=== PATIENT | male | born 1935 | race Caucasian/White ===

== ENCOUNTER 2016-05-19 20:34 | Inpatient (IN) | payer MEDICARE, OTHER, MEDICAID ==
[2016-05-19 21:12] LABS: HEMATOCRIT 31.1 % (39.0-49.0); HEMOGLOBIN 10.8 gm/dL (12.6-17.4); MEAN CORPUSCULAR HEMOGLOBIN 28.8 pg (27.0-31.0); MEAN CORPUSCULAR HGB CONC 34.8 pg (28.0-36.0); PLATELET COUNT 263 Th/cmm (150-400); RED BLOOD COUNT 3.74 Mil/cmm (3.80-5.80); RED CELL DISTRIBUTION WIDTH 14.3 % (11.5-20.0)
[2016-05-19 21:13] LABS: WHITE BLOOD COUNT 16.6 Th/cmm (4.8-10.8)
[2016-05-19 21:15] LABS: INR 1.27 (0.5-1.4); PROTHROMBIN TIME (TEST) 12.8 SECONDS (9.5-11.5)
[2016-05-19 21:19] LABS: ALB/GLOB RATIO 0.6 (1.0-1.8); ALKALINE PHOSPHATASE 224 U/L (34-104); ANION GAP 15.9 (7.0-16.0); BILIRUBIN,TOTAL 0.9 mg/dL (0.3-1.0); BUN - UREA NITROGEN 73 mg/dL (7-25); BUN/CREATININE RATIO 38.4; CALCIUM SERUM 9.9 mg/dL (8.6-10.3); CARBON DIOXIDE 20.4 mEq/L (21.0-31.0); CHLORIDE 102 mEq/L (98-107); CREATININE - SERUM 1.9 mg/dL (0.7-1.3); GLUCOSE 120 mg/dL (70-105); POTASSIUM SERUM 4.3 mEq/L (3.5-5.1); SGOT 16 U/L (13-39); SGPT/ALT 13 U/L (7-52); SODIUM SERUM 134 mEq/L (136-145)
--- NOTE | 2016-05-19 21:23 | ED Physician Chart ---
Chief Complaint/HPI - Patient Information Date Seen:: 05/19/16 Time Seen:: 20:40 Chief Complaint:: GENERALIZED BODY PAIN History of Present Illness:: THIS IS AN 80 YR MALE FROM HOME WITH GENERALIZE PAIN AND A HISTORY OF COLON CANCER WITH METS. HE HAS RENAL FINALURE, HEART DISEASE AND IS CACHETIC WITH SEVER MUSCLE WASTING. HE ALSO HAS HYPERTENSION MULTIPLE BED SORES. HE IS A DNR AND ON HIGH DOSES OF ANALGESICS. Allergies:: Allergies Allergy/AdvReac Type Severity Reaction Status Date / Time No Known Allergies Allergy Verified 01/05/16 22:14 Vitals:: Vital Signs - 8 hr 05/19/16 20:37 Temp 97.1 F HR 66 RR 20 BP 106/66 O2 Sat % 100 Historian:: Patient, EMS, Family Member, Medical Records Review:: Nurse's Note Reviewed Review of Systems - Review of Systems General/Constitutional: No fever, No chills, Weight loss, Weakness, No diaphoresis, No edema, Loss of appetite Skin: No skin lesions, No rash, No bruising Head: No headache, No light-headedness Eyes: No loss of vision, No pain, No diplopia ENT: No earache, No nasal drainage, No sore throat, No tinnitus Neck: No neck pain, No swelling, No thyromegaly, No stiffness, No mass noted Cardio Vascular: No chest pain, No palpitations, No PND, No orthopnea, No edema Pulmonary: No SOB, No cough, No sputum, No wheezing GI: No nausea, No vomiting, No diarrhea, Pain, No melena, No hematochezia, No constipation, No hematemesis G/U: No dysuria, No frequency, No hematuria Musculoskeletal: No bone or joint pain, No back pain, No muscle pain Endocrine: No polyuria, No polydipsia Psychiatric: No prior psych history, No depression, No anxiety, No suicidal ideation Hematopoietic: No bruising, No lymphadenopathy Allergic/Immuno: No urticaria, No angioedema Neurological: No syncope, No focal symptoms, No weakness, No paresthesia, No headache, No seizure, No dizziness, No confusion, No vertigo Past Medical History - Past Medical History Obtainable: Yes Past Medical History: HTN, CAD, ESRD, Other (COLON CANCER) Family History: Heart disease Social History: Non Smoker, No Alcohol, No Drug Use Surgical History: None Psychiatricy History: Depression Medication: Reviewed Family Medical History - Family Member Mother History Unknown: Yes Physical Exam - Physical Examination General/Constitutional: Awake, No distress, GCS 15 Other Gen/Cons comments:: 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 Head: Atraumatic Eyes: Lids, conjuctiva normal, PERRL, EOMI Skin: No rash, No skin lesions, No ecchymosis, No lymphadenopathy Other Skin comments:: DEHYDRATED ENMT: External ears, nose nl, Nasal exam nl, Lips, teeth, gums nl Neck: Nontender, Full ROM w/o pain, No JVD, No nuchal rigidity, No bruit, No mass, No stridor Respiratory: Nl effort/Exclusion, Clear to Auscultation Other Respiratory comments:: BILATERAL RHONCHI Cardio Vascular: RRR, No murmur, gallop, rubs, NL S1 S2 GI: No tenderness/rebounding/guarding, No organomegaly, No hernia, Nondistended , No mass/bruits, No McBurney tenderness Other GI comments:: DECREASE BOWEL SOUNDS : No CVA tenderness Extremities: No tenderness or effusion, Full ROM, normal strength in all extremities, No edema, Normal digits & nails Neuro/Psych: Alert/oriented, DTR's symmetric, Normal sensory exam, Normal motor strength, Judgement/insight normal, Normal gait, No focal deficits Other Neuro/Psych comments:: DEPRESSED Misc: normal gait, Normal back, No paraspinal tenderness Labs/Radiology/EKG Results - Lab Results Results: Abnormal Lab Results 05/19/16 05/19/16 05/19/16 20:54 20:54 20:54 WBC 16.6 H D RBC 3.74 L Hgb 10.8 L Hct 31.1 L MCV 83.0 MCH 28.8 MCHC Differential 34.8 RDW 14.3 Plt Count 263 MPV 6.0 PT 12.8 H INR 1.27 Sodium 134 L Potassium 4.3 Chloride 102 Carbon Dioxide 20.4 L Anion Gap 15.9 BUN 73 H Creatinine 1.9 H Est GFR ( Amer) TNP Est GFR (Non-Af Amer) TNP BUN/Creatinine Ratio 38.4 Glucose 120 H Calcium 9.9 Total Bilirubin 0.9 AST 16 ALT 13 Alkaline Phosphatase 224 H Troponin I Total Protein 7.1 Albumin 2.7 L Globulin 4.4 Albumin/Globulin Ratio 0.6 L 05/19/16 20:54 WBC RBC Hgb Hct MCV MCH MCHC Differential RDW Plt Count MPV PT INR Sodium Potassium Chloride Carbon Dioxide Anion Gap BUN Creatinine Est GFR ( Amer) Est GFR (Non-Af Amer) BUN/Creatinine Ratio Glucose Calcium Total Bilirubin AST ALT Alkaline Phosphatase Troponin I 0.06 H D Total Protein Albumin Globulin Albumin/Globulin Ratio - Radiology Results Results: CHEST X-RAY = PATCHY INFILTRATES SEEN - EKG Interpretations EKG Time:: 20:56 Rhythm: ATRIAL FIB [place]: RIGHT Rate: 72 ED Septic Shock - . Is Septic Shock (SBP<90, OR Lactate>4 mmol\L) present?: No - <6hrs of presentation: Vital Signs: Vital Signs - 8 hr 05/19/16 20:37 Temp 97.1 F HR 66 RR 20 BP 106/66 O2 Sat % 100 Reassessment (Disposition) - Reassessment Reassessment Condition:: Improved - Diagnosis Diagnosis:: ABDOMINAL PAIN DEHYDRATION COLON CANCER ATRIAL FIB ELEVATED TROPONIN URINARY TRACT INFECTION - Patient Disposition Discharge/Transfer:: Acute Care w/in this hosp Admitting Medical Physician:: Gamal Rouse Condition at Disposition:: Improved
[2016-05-19] MEDS ORDERED: Sodium Chloride 0.45% 500 ML IV ONE (21:25)
[2016-05-19] MEDS ORDERED: Sodium Chloride 0.9% 1,000 ML IV ONE ×2 (21:41→21:42)
[2016-05-19 22:00] LABS: URINE BILIRUBIN SMALL (NEGATIVE); URINE BLOOD MODERATE (NEGATIVE); URINE COLOR AMBER; URINE GLUCOSE (UA) NEGATIVE (NEGATIVE); URINE KETONE NEGATIVE (NEGATIVE); URINE PH 5.5; URINE PROTEIN 30 mg/dL (NEGATIVE)
[2016-05-19 22:01] LABS: URINE BACTERIA MANY /hpf (NONE SEEN); URINE EPITHELIAL CELLS OCCASIONAL /lpf (FEW); URINE WBC >100 /hpf (0-5)
[2016-05-19 22:06] LABS: BAND NEUTROPHILE 5 % (0-10); EOSINOPHIL 2 % (0-5); NEUTROPHILS 82 % (40-80); OVALOCYTES 1+; PLATELET ESTIMATE ADEQUATE (NORMAL); TOTAL CELLS COUNTED 100
[2016-05-19] MEDS ORDERED: Albuterol/Ipratropium Neb 3 ML AERS HHN PRN (23:18)
[2016-05-20] MEDS: Sodium Chloride 0.9% 1,000 ML IV SCH ×3 (00:30→18:10)
[2016-05-20] MEDS: Morphine 10 mg/5 ml 5mL UDC PO PRN ×2 (00:38→22:09)
[2016-05-20 07:20] LABS: HEMATOCRIT 28.8 % (39.0-49.0); HEMOGLOBIN 9.9 gm/dL (12.6-17.4); MEAN CELL VOLUME 83.8 fl (80-99); MEAN CORPUSCULAR HEMOGLOBIN 28.9 pg (27.0-31.0); MEAN CORPUSCULAR HGB CONC 34.4 pg (28.0-36.0); MEAN PLATELET VOLUME 6.6 fl; PLATELET COUNT 218 Th/cmm (150-400); RED BLOOD COUNT 3.43 Mil/cmm (3.80-5.80); RED CELL DISTRIBUTION WIDTH 14.3 % (11.5-20.0); WHITE BLOOD COUNT 15.4 Th/cmm (4.8-10.8)
[2016-05-20 08:32] LABS: ALB/GLOB RATIO 0.6 (1.0-1.8); ALKALINE PHOSPHATASE 201 U/L (34-104); ANION GAP 11.6 (7.0-16.0); BILIRUBIN,TOTAL 0.7 mg/dL (0.3-1.0); BUN - UREA NITROGEN 69 mg/dL (7-25); BUN/CREATININE RATIO 40.6; CALCIUM SERUM 9.6 mg/dL (8.6-10.3); CARBON DIOXIDE 21.8 mEq/L (21.0-31.0); CHLORIDE 107 mEq/L (98-107); CREATININE - SERUM 1.7 mg/dL (0.7-1.3); GLUCOSE 130 mg/dL (70-105); MAGNESIUM 1.8 mg/dL (1.9-2.7); POTASSIUM SERUM 4.4 mEq/L (3.5-5.1); SGOT 13 U/L (13-39); SGPT/ALT 11 U/L (7-52); SODIUM SERUM 136 mEq/L (136-145)
[2016-05-20 08:54] LABS: DIGOXIN 2.2 ng/ml (0.8-2.0)
[2016-05-20 09:02] LABS: BAND NEUTROPHILE 8 % (0-10); NEUTROPHILS 88 % (40-80); PLATELET ESTIMATE ADEQUATE (NORMAL); PLATELET MORPHOLOGY NORMAL (NORMAL); TOTAL CELLS COUNTED 100
[2016-05-20] MEDS ORDERED: Morphine Sulfate 2 mg/mL 1mL Syr IVP PRN (09:42)
[2016-05-20] MEDS ORDERED: Pantoprazole 40 mg EC Tab PO SCH (09:45)
[2016-05-20] MEDS ORDERED: Non-Formulary Item 1 EA (Non-Formulary Item [Non-Formulary Item] 1 EA) PO PRN (09:45)
--- NOTE | 2016-05-20 10:57 | Diagnostic Imaging Report ---
Portable chest x-ray HISTORY: Pain There is marked cardiomegaly. No focal pulmonary processes. No hilar or mediastinal abnormalities. IMPRESSION: 1. No acute focal pulmonary processes 2. Cardiomegaly
[2016-05-20] MEDS: Ciprofloxacin 200mg Premix PB 200 MG/100 ML BAG IV SCH (11:25)
--- NOTE | 2016-05-20 13:45 | History & Physical ---
CHIEF COMPLAINT: Generalized pain. HISTORY OF PRESENT ILLNESS: This is an 80-year-old gentleman who presents from home and who has been under hospice care ([facility]) for some time, complaining of generalized bodyaches. He has a history of colon cancer with metastatic disease, renal insufficiency, history of CAD/CHF, hypertension and cachexia. The patient appears to be comfortable at this time, but does complain of generalized bodyaches as mentioned above. He does have multiple pressure ulcers including the right hip, right buttock, and the left heel areas. On further questioning, he denies any fever, chills, UTI symptomatology or cough or phlegm production and does not complain specifically of chest pain or angina. He presented to the ER and has been admitted to telemetry for further management and care. PERTINENT FINDINGS ON ADMISSION: Include a white count of 16.6, BUN of 73 with creatinine of 1.9 and a slight elevation of troponins at 0.06. He also has a UA consistent with a UTI. PAST MEDICAL HISTORY: History of CHF, history of cardiomyopathy, atrial fibrillation, renal insufficiency and GERD. PAST SURGICAL HISTORY: No recent surgeries noted. He states that he has had no surgery for the colon cancer. FAMILY HISTORY: Likely noncontributory. SOCIAL HISTORY: He denies any tobacco, ETOH or illicit drug usage. REVIEW OF SYSTEMS: CONSTITUTIONAL: Generalized pain and discomfort. No fever or chills. The patient appears to be chronically losing weight. CARDIAC: No chest pain, palpitations. PULMONARY: Denies any cough, any shortness of breath, any secretions. GASTROINTESTINAL: No bowel habit changes. GENITOURINARY: No bladder habit changes. MUSCULOSKELETAL: General pain as mentioned above. NEUROLOGIC: No loss of consciousness. No changes in vision. PHYSICAL EXAMINATION: VITAL SIGNS: Temperature 97.8, pulse 93, respirations 18, BP 137/55, satting 100% on room air. GENERAL: He is a well-developed, thin cachectic male, currently lying in bed and not in acute distress. HEAD AND NECK: Normocephalic, atraumatic. Oropharynx, he has got dry mucous membranes. NECK: There is no JVD or LAD. CARDIAC: Regular rate and rhythm with distant sounds. LUNGS: Clear to auscultation bilaterally. ABDOMEN: Soft, supple, nontender, nondistended, normoactive bowel sounds. SKIN: On the right hip area, there is a round approximately 4-5 cm round ulcer, which has scar tissue surrounding it. There is mild erythema. On the right buttock area, he does have about 3 cm decubitus ulcer with drainage on it and on the left heel, there is about a 2 cm pressure ulcer that has scar tissue on top of it. NEUROLOGIC: His cranial nerves 2-12 are within normal limits and he is nonfocal. ALLERGIES: NKDA. OUTPATIENT MEDICATIONS: Roxanol 0.25 mL q. 4 p.r.n. for pain, Tylenol 650 q. 6 p.r.n. for mild to moderate pain, Coreg 12.5 b.i.d., Lasix 20 mg every day, potassium chloride 8 mEq every day, Colace 100 mg b.i.d., Protonix 10 mg b.i.d., Restoril 15 mg at bedtime, prochlorperazine 1 tab q. 6 p.r.n. for nausea, vomiting, bisacodyl 10 mg p.r.n. every day for constipation and DuoNeb q. 4 p.r.n. for shortness of breath and wheezing. LABORATORY DATA: On admission, white count 16.6, H and H 02/24, and platelet count of 263. INR is 1.27. Sodium 134, CO2 20, BUN 73, creatinine 1.9, glucose 120, alkaline phosphatase 224. Troponin 0.06 and albumin 2.7 and TSH is 15.7. UA shows moderate blood, large leukocyte esterase, 2-5 rbc's, over 100 wbc's. DIAGNOSTICS: Chest x-ray per ER's interpretation, possible patchy infiltrates. EKG shows atrial fibrillation with a rate of 72. IMPRESSION 1. Leukocytosis. Differential include urinary tract infection versus wound infection versus possible lung infection. 2. Renal insufficiency, azotemia, unknown if there is a chronic component. 3. Generalized pain/chronic pain syndrome, likely secondary to metastatic disease. 4. Multiple decubitus ulcers. 5. Malnutrition/poor p.o. intake. 6. Anemia. 7. History of atrial fibrillation. 8. History of cardiomyopathy. 9. History of colon cancer with mets. PLAN: The patient has been admitted to a telemetry ahumada for further management and care. He has been placed on IV fluids at 125 mL per hour. The patient also has been started on IV antibiotics and will be pancultured including wound cultures and urine cultures. The patient will also be started on IV morphine for his pain, and will also be kept on his medications as scheduled except for the Lasix and potassium. Daily wound care will be implemented and protein supplements will be asked for. Daily labs will also be ordered as well as a followup x-ray. JOB# [id number] [facility] SYSTEM[facility]az[facility]
[2016-05-20] MEDS ORDERED: Pneumococcal Vaccine 0.5 mL Vial IM ONE (14:39)
[2016-05-20] MEDS: Diclofenac 75 mg Tab PO PRN (14:50)
[2016-05-20] MEDS ORDERED: VTE Chemical Prophylaxis Screen/Admission MC PRN (15:44)
--- NOTE | 2016-05-20 18:56 | Admit Criteria Form ---
Admit Criteria Forms - Admit Criteria Diagnosis: URINARY COMPLICATIONS Clinical Indications for Inpatient Care (Place 'X' for any and all applicable criteria): Ongoing inpatient care may be indicated for urinary complications with ANY ONE of the following: [X ]I. Urinary tract infection requiring inpatient care as indicated by ANY ONE of the following(8)(19)(20): [ ]a) Severe symptoms (eg, high fever, severe pain) [ ]b) Vomiting or dehydration requiring ongoing inpatient care [ X]c) IV antibiotic needs that cannot be managed at lower level of care [ ]d) Hemodynamic instability [ ]e) Obstruction of collecting system by stone or tumor [ ]II. Urinary retention requiring drainage or surgery (3)(4)(5)(17)(18) [ ]III. Renal failure (Use Renal Failure Criteria for further information.) [ ]IV. Oliguria(30) [ ]V. Post obstructive diuresis requiring close monitoring of urine output and intravenous compensation for excessive fluid losses(33) Extended stay beyond goal length of stay for primary condition may be needed until ALL of the following are present(3)(4)(5)(8): [ ]a) Renal function (creatinine) at baseline, or daily decreases in creatinine consistent with renal function return [ ]b) Voiding adequately or with urinary catheter or percutaneous suprapubic tube and management regimen in place that is performable at lower level of care. [ ]c) Urine output adequate [ ]d) Fever absent or resolving [ ]e) Infection absent or treatable at next level of care The original [employer] content created by [employer] has been revised. The portions of the content which have been revised are identified through the use of italic text or in bold, and [facility] has neither reviewed nor approved the modified material. All other unmodified content is copyright [facility] [employer] Please see references footnoted in the original [facility] [employer] edition 2016 Admit Criteria Met?: Yes
[2016-05-20] MEDS: cefTRIAXone 1 GM in Sodium Chloride 0.9% 50 ML IV SCH (22:10)
[2016-05-21] MEDS: Morphine 10 mg/5 ml 5mL UDC PO PRN ×2 (03:02→21:36)
[2016-05-21] MEDS: Sodium Chloride 0.9% 1,000 ML IV SCH ×2 (04:17→08:28)
[2016-05-21] MEDS: Ciprofloxacin 200mg Premix PB 200 MG/100 ML BAG IV SCH (09:31)
[2016-05-21] MEDS: Venelex 60gm Tube TP SCH (09:37)
--- NOTE | 2016-05-21 13:17 | Consultation ---
REFERRING PHYSICIAN: Dr. Rouse. REASON FOR CONSULTATION: Multiple decubitus ulcers. Thank you for referring this patient to me. HISTORY OF PRESENT ILLNESS: This is an 88-year-old male who comes from home under hospice care by ____. PAST MEDICAL HISTORY: Includes renal insufficiency with chronic ____, chronic pain syndrome, decubitus ulcer with malnutrition. He has hypertension and colon cancer with metastasis. LABORATORY STUDIES: Show WBC high at 15,400, hemoglobin low at 9.9. Chemistry shows BUN at 69 with creatinine 1.7. Albumin is low at 2.5. PHYSICAL EXAMINATION: GENERAL: The patient is apparently bedridden and very asthenic. He appears to be alert, however. SKIN: There are multiple decubitus ulcers involving the back, hips and the lower extremities. On close questioning, the patient wants to just go home and and does not want any kind of surgical debridement for his ulcers. Attempt was made to leave message to to confirm the patient wishes. [facility]# [id number]
[2016-05-21 14:46] LABS: HEMOGLOBIN 8.4 gm/dL (12.6-17.4)
[2016-05-21 14:51] LABS: MEAN CELL VOLUME 82.8 fl (80-99); MEAN CORPUSCULAR HEMOGLOBIN 27.9 pg (27.0-31.0); MEAN CORPUSCULAR HGB CONC 33.6 pg (28.0-36.0); MEAN PLATELET VOLUME 6.6 fl; PLATELET COUNT 211 Th/cmm (150-400); RED BLOOD COUNT 3.02 Mil/cmm (3.80-5.80); RED CELL DISTRIBUTION WIDTH 14.7 % (11.5-20.0); WHITE BLOOD COUNT 12.5 Th/cmm (4.8-10.8)
[2016-05-21 15:00] LABS: BAND NEUTROPHILE 7 % (0-10); NEUTROPHILS 86 % (40-80); TOTAL CELLS COUNTED 100
[2016-05-21 15:01] LABS: EOSINOPHIL 0 % (0-5); PLATELET ESTIMATE ADEQUATE (NORMAL); PLATELET MORPHOLOGY NORMAL (NORMAL)
[2016-05-21 15:24] LABS: ANION GAP 7.9 (7.0-16.0); BUN - UREA NITROGEN 58 mg/dL (7-25); BUN/CREATININE RATIO 44.6; CALCIUM SERUM 9.1 mg/dL (8.6-10.3); CARBON DIOXIDE 18.2 mEq/L (21.0-31.0); CHLORIDE 113 mEq/L (98-107); CREATININE - SERUM 1.3 mg/dL (0.7-1.3); GLUCOSE 89 mg/dL (70-105); POTASSIUM SERUM 4.1 mEq/L (3.5-5.1); SODIUM SERUM 135 mEq/L (136-145)
[2016-05-21] MEDS ORDERED: Influenza Vaccine 0.5 mL Syr IM ONE (15:32)
[2016-05-21] MEDS: cefTRIAXone 1 GM in Sodium Chloride 0.9% 50 ML IV SCH (20:54)
[2016-05-22] MEDS: Sodium Chloride 0.9% 1,000 ML IV SCH ×3 (02:28→23:29)
--- NOTE | 2016-05-22 06:11 | Consultation ---
ATTENDING PHYSICIAN: Dr. Gamal Rouse. ANIMAL RESEARCHER: Dr. Maynor Mcfarland. REASON FOR CONSULTATION: Worsening kidney function, electrolyte imbalance and fluid management. HISTORY OF PRESENT ILLNESS: This is an 80-year-old male with past medical history of chronic kidney disease who came in because of generalized body pain. The patient has been bedbound and under the care of hospice ([facility]) at home. He subsequently developed multiple pressure decubitus ulcers. A few hours prior to admission, he complained of generalized body pain. He was then brought to the Emergency Room. His white count was 16.6 with a BUN/creatinine of 73/1.9. Urinalysis was suggestive of urinary tract infection. He has a history of chronic kidney disease in the past. His BUN/creatinine yesterday were 69/1.7. He had no history of diarrhea nor nausea and vomiting. PAST MEDICAL HISTORY: 1. Chronic kidney disease. 2. Metastatic colon CA. 3. GERD. 4. Cardiomyopathy. 5. Chronic AFib. 6. Severe malnutrition. MEDICATIONS: He is currently on acetaminophen, albuterol and ipratropium, bisacodyl, ciprofloxacin, Voltaren, Colace, morphine sulfate, pantoprazole, prochlorperazine, temazepam and Rocephin. ALLERGIES: No known drug allergies. SOCIAL HISTORY: No history of alcohol or tobacco use. REVIEW OF SYSTEMS: GENERAL: The patient has very poor appetite. He was not able to eat approximately in the last few days. He did not have any fever nor chills. He has generalized body aches and weakness. HEENT: No mention of any headaches nor dizziness. He does have blurry vision as well as diminished hearing acuity. CARDIORESPIRATORY: He has a history of cardiomyopathy, chronic atrial fibrillation. He does not have any chest pain, palpitations, diaphoresis, cough and no shortness of breath. GASTROINTESTINAL: No nausea and vomiting, abdominal pain or cramping, hematemesis, melena, hematochezia and no diarrhea. ENDOCRINE: No history of diabetes and no thyroid abnormalities. MUSCULOSKELETAL: Multiple joint arthralgias. GENITOURINARY: No dysuria nor hematuria. He does have chronic kidney disease. He has ongoing complicated UTI. HEMATOLOGIC: History of anemia, more likely of chronic kidney disease. NEUROPSYCHIATRIC: No syncopal episode and no seizure activity. PHYSICAL EXAMINATION: GENERAL: The patient is awake, verbal, less bodyaches and cachectic. VITAL SIGNS: Blood pressure is 128/51, pulse 59 and temperature 97.3 degrees. SKIN: Very poor turgor and warm. He has some discoloration especially in his right lower extremity in his right hall. He has decubitus ulcers present on his right hip and right buttocks as well as right hall area. HEENT: Head is normocephalic and atraumatic. Eyes: Extraocular muscles intact. Pupils equal, round and reactive to light and accommodates. Anicteric sclerae. Pale conjunctivae. Nose: Midline nasal septum. Mouth: Very dry mucosa with poor dentition. NECK: Supple. No adenopathy, no thyromegaly and no bruits. Trachea palpated in the midline. CHEST AND CVS: S1 and S2. No rub or murmur nor gallop appreciated. Point of maximal impulse in fifth intercostal space, left midclavicular line. No abdominal or femoral bruits appreciated. LUNGS: Equal expansion. No use of accessory muscles. No supraclavicular retractions. Decreased breath sounds, few rhonchi, but no rales nor wheezes appreciated. ABDOMEN: Mildly globular and soft. Positive for bowel sounds. No bruits either diastolic or systolic. RECTAL: Lax sphincter tone. GENITOURINARY: Normal appearing male genitalia. MUSCULOSKELETAL: No effusion present in his joints, but unable to assess his range of motion. EXTREMITIES: He has bilateral musculoskeletal atrophy of both lower extremities. As mentioned, he has a dressing on his right hall area, he has a palpable femoral, unable to fully appreciate popliteal and dorsalis pedis pulses because lower extremities are contracted. NEUROLOGIC: The patient is awake and verbal. Motor is 5/5. Cranial nerves 3-12 intact. Sensory is intact. LABORATORY DATA: Did reveal sodium is 136, potassium 4.4, chloride 107, bicarb 21, BUN 69, creatinine 1.7, glucose 130, calcium 9.6, magnesium 1.8 and albumin is 2.5. Blood culture x 2 was negative. White count is 15.4, hemoglobin 9.9, hematocrit 28.8, polys 88% and platelets 218. IMPRESSION: 1. Acute kidney injury on chronic kidney disease MDRD GFR of 41.5 mL per minute, stage 3. The patient's chronic kidney disease is secondary to chronic interstitial nephritis due to frequent exposure to nephrotoxic medications. Acute kidney injury is initially prerenal in nature. The patient had a very poor oral intake. This is shown by his severe malnutrition and is quite cachectic. He was not able to replenish both sensible and insensible fluid losses. He had developed severe dehydration, which lead to a decrease in effective circulating volume. Thus, his prerenal azotemia progressed to acute tubular injury. He also has an ongoing complicated UTI which would give rise to acute interstitial nephritis. 2. Severe dehydration. 3. Severe malnutrition. 4. Metastatic colon CA. 5. GERD. 6. Cardiomyopathy. 7. Chronic atrial fibrillation. 8. Leukocytosis secondary to complicated UTI as well as infected ulcers. 9. Anemia of chronic kidney disease. 10. Hypomagnesemia. PLAN: 1. To continue with IV fluids. 2. Urine C and S. 3. Urine sodium, eosinophils and creatinine. 4. Renal ultrasound. 5. Follow up electrolytes. 6. Encourage p.o. intake. 7. Discontinue Voltaren. The patient has very poor prognosis. Thank you Dr. Rouse for this consult and we will follow the patient closely with you. JOB# [id number]
[2016-05-22] MEDS: Morphine 10 mg/5 ml 5mL UDC PO PRN ×2 (06:24→11:33)
[2016-05-22 07:02] LABS: HEMATOCRIT 25.8 % (39.0-49.0); HEMOGLOBIN 8.8 gm/dL (12.6-17.4); MEAN CELL VOLUME 82.5 fl (80-99); MEAN CORPUSCULAR HEMOGLOBIN 28.1 pg (27.0-31.0); MEAN PLATELET VOLUME 5.7 fl; PLATELET COUNT 232 Th/cmm (150-400); RED BLOOD COUNT 3.13 Mil/cmm (3.80-5.80); RED CELL DISTRIBUTION WIDTH 14.5 % (11.5-20.0); WHITE BLOOD COUNT 10.3 Th/cmm (4.8-10.8)
[2016-05-22 07:16] LABS: MAGNESIUM 1.9 mg/dL (1.9-2.7); PHOSPHOROUS 1.7 mg/dL (2.5-5.0)
[2016-05-22 07:20] LABS: ANION GAP 9.1 (7.0-16.0); BUN - UREA NITROGEN 48 mg/dL (7-25); CALCIUM SERUM 9.1 mg/dL (8.6-10.3); CARBON DIOXIDE 17.4 mEq/L (21.0-31.0); CHLORIDE 115 mEq/L (98-107); CREATININE - SERUM 1.2 mg/dL (0.7-1.3); GLUCOSE 82 mg/dL (70-105); POTASSIUM SERUM 3.5 mEq/L (3.5-5.1); SODIUM SERUM 138 mEq/L (136-145)
[2016-05-22 08:46] LABS: BAND NEUTROPHILE 3 % (0-10); NEUTROPHILS 90 % (40-80); TOTAL CELLS COUNTED 100
[2016-05-22 08:47] LABS: ANISOCYTOSIS 1+; PLATELET ESTIMATE ADEQUATE (NORMAL); PLATELET MORPHOLOGY NORMAL (NORMAL)
[2016-05-22] MEDS: Venelex 60gm Tube TP SCH (08:54)
[2016-05-22] MEDS: Ciprofloxacin 200mg Premix PB 200 MG/100 ML BAG IV SCH (08:56)
--- NOTE | 2016-05-22 10:06 | Diagnostic Imaging Report ---
CHEST X-RAY: AP view INDICATION: Pneumonia COMPARISON: Chest x-ray 05/19/2016 FINDINGS: Suboptimal lung volumes are seen with bibasal atelectatic changes. No focal consolidation identified. Cardiomegaly is noted. IMPRESSION: Suboptimal lung volumes and bibasal atelectasis. No focal consolidation identified. Cardiomegaly.
--- NOTE | 2016-05-22 19:00 | General Progress Note ---
Subjective - Review of Systems Service Date: 05/22/16 Subjective: awake, verbal, weak Objective - Results Result Diagrams: 05/22/16 06:44 05/22/16 06:44 Recent Labs: Laboratory Last Values WBC 10.3 Th/cmm (4.8-10.8) 05/22/16 06:44 RBC 3.13 Mil/cmm (3.80-5.80) L 05/22/16 06:44 Hgb 8.8 gm/dL (12.6-17.4) L 05/22/16 06:44 Hct 25.8 % (39.0-49.0) L 05/22/16 06:44 MCV 82.5 fl (80-99) 05/22/16 06:44 MCH 28.1 pg (27.0-31.0) 05/22/16 06:44 MCHC Differential 34.0 pg (28.0-36.0) 05/22/16 06:44 RDW 14.5 % (11.5-20.0) 05/22/16 06:44 Plt Count 232 Th/cmm (150-400) 05/22/16 06:44 MPV 5.7 fl 05/22/16 06:44 Band Neutrophils % 3 % (0-10) 05/22/16 06:44 Neutrophils (Manual) 90 % (40-80) H 05/22/16 06:44 Lymphocytes 5 % (20-50) L 05/22/16 06:44 Monocytes 2 % (2-10) 05/22/16 06:44 Eosinophils 0 % (0-5) 05/21/16 14:30 Platelet Estimate ADEQUATE (NORMAL) 05/22/16 06:44 Platelet Morphology NORMAL (NORMAL) 05/22/16 06:44 Anisocytosis 1+ 05/22/16 06:44 Ovalocytes 1+ 05/19/16 20:54 RBC Morph Micro Appear ABNORMAL (NORMAL) 05/22/16 06:44 Eos Smear Source URINE 05/21/16 14:30 Eos Smear Total Cells NONE SEEN (NONE SEEN) 05/21/16 14:30 PT 12.8 SECONDS (9.5-11.5) H 05/19/16 20:54 INR 1.27 (0.5-1.4) 05/19/16 20:54 Sodium 138 mEq/L (136-145) 05/22/16 06:44 Potassium 3.5 mEq/L (3.5-5.1) 05/22/16 06:44 Chloride 115 mEq/L (98-107) H 05/22/16 06:44 Carbon Dioxide 17.4 mEq/L (21.0-31.0) L 05/22/16 06:44 Anion Gap 9.1 (7.0-16.0) 05/22/16 06:44 BUN 48 mg/dL (7-25) H 05/22/16 06:44 Creatinine 1.2 mg/dL (0.7-1.3) 05/22/16 06:44 Est GFR ( Amer) TNP 05/22/16 06:44 Est GFR (Non-Af Amer) TNP 05/22/16 06:44 BUN/Creatinine Ratio 40.0 05/22/16 06:44 Glucose 82 mg/dL (70-105) 05/22/16 06:44 Uric Acid 9.0 mg/dL (4.4-7.6) H 05/22/16 06:44 Calcium 9.1 mg/dL (8.6-10.3) 05/22/16 06:44 Phosphorus 1.7 mg/dL (2.5-5.0) L 05/22/16 06:44 Magnesium 1.9 mg/dL (1.9-2.7) 05/22/16 06:44 Total Bilirubin 0.7 mg/dL (0.3-1.0) 05/20/16 06:15 AST 13 U/L (13-39) 05/20/16 06:15 ALT 11 U/L (7-52) 05/20/16 06:15 Alkaline Phosphatase 201 U/L (34-104) H 05/20/16 06:15 Troponin I 0.04 ng/mL (0.01-0.05) 05/20/16 10:35 Total Protein 6.6 gm/dL (6.0-8.3) 05/20/16 06:15 Albumin 2.5 gm/dL (4.2-5.5) L 05/20/16 06:15 Globulin 4.1 gm/dL 05/20/16 06:15 Albumin/Globulin Ratio 0.6 (1.0-1.8) L 05/20/16 06:15 TSH 15.77 uIU/ml (0.34-5.60) H 05/19/16 20:54 Urine Source [place] 05/19/16 21:20 Urine Color CHUY 05/19/16 21:20 Urine Clarity CLOUDY (CLEAR) 05/19/16 21:20 Urine pH 5.5 05/19/16 21:20 Ur Specific [place] 1.015 (1.005-1.030) 05/19/16 21:20 Urine Protein 30 mg/dL (NEGATIVE) H 05/19/16 21:20 Urine Glucose (UA) NEGATIVE mg/dL (NEGATIVE) 05/19/16 21:20 Urine Ketones NEGATIVE mg/dL (NEGATIVE) 05/19/16 21:20 Urine Blood MODERATE (NEGATIVE) H 05/19/16 21:20 Urine Nitrate NEGATIVE (NEGATIVE) 05/19/16 21:20 Urine Bilirubin SMALL (NEGATIVE) H 05/19/16 21:20 Urine Ictotest NEGATIVE (NEGATIVE) 05/19/16 21:20 Urine Urobilinogen 1.0 E.U./dL (0.2 - 1.0) 05/19/16 21:20 Ur Leukocyte Esterase LARGE (NEGATIVE) H 05/19/16 21:20 Urine RBC 2-5 /hpf (0-5) H 05/19/16 21:20 Urine WBC >100 /hpf (0-5) H 05/19/16 21:20 Ur Epithelial Cells OCCASIONAL /lpf (FEW) 05/19/16 21:20 Urine Bacteria MANY /hpf (NONE SEEN) 05/19/16 21:20 Ur Random Sodium 47 mmol/L 05/21/16 14:30 Urine Creatinine 38.0 mg/dl (39.0-259.0) L 05/21/16 14:30 Digoxin 2.2 ng/ml (0.8-2.0) H 05/20/16 06:15 - Physical Exam Vitals and I&O: Vital Signs Temp 99.3 F 05/22/16 16:00 Pulse 92 05/22/16 16:00 Resp 18 05/22/16 16:00 BP 85/52 05/22/16 16:00 Pulse Ox 100 05/22/16 16:00 Intake & Output 05/21/16 05/22/16 05/22/16 18:59 06:59 18:59 Intake Total 1922.076 102 6238 Output Total 950 2900 Balance 972.917 -2780 1000 Intake: Intake, IV Amount 9762.769 0377 Ciprofloxacin 200mg 100 Premix PB 200 mg In 100 ml @ 100 mls/hr IV Q24HR [facility] Rx#:[id number] Sodium Chloride 0.9% 1, 3031.702 5750 000 ml @ 125 mls/hr IV . Q8H [facility] Rx#:[id number] Oral 300 120 Output: Urine 950 2900 Other: # Bowel Movements 0 Active Medications: Current Medications Acetaminophen (Tylenol) 650 mg PO Q6HR PRN PRN Reason: Pain (Mild) Stop: 07/18/16 23:17 Albuterol/Ipratropium (Duoneb Neb) 3 ml HHN Q4HR PRN PRN Reason: Shortness of Breath or Wheeze Stop: 07/18/16 23:17 Bisacodyl (Dulcolax 10 Mg Supp) 10 mg RC DAILY PRN PRN Reason: Constipation Stop: 07/18/16 23:17 Diclofenac Sodium (Voltaren) 75 mg PO DAILY PRN PRN Reason: Moderate Pain Stop: 07/18/16 23:17 Last Admin: 05/20/16 14:50 Dose: 75 mg Docusate Sodium (Colace) 100 mg PO BID PRN PRN Reason: Constipation Stop: 07/18/16 23:17 Last Admin: 05/20/16 09:10 Dose: 100 mg Sodium Chloride (Nacl 0.9%) 1,000 mls @ 125 mls/hr IV .Q8H [facility] Stop: 07/18/16 23:10 Last Admin: 05/22/16 11:33 Dose: 125 mls/hr Ceftriaxone Sodium 1 gm/ (Sodium Chloride) 50 mls @ 100 mls/hr IV Q24HR [facility] Stop: 07/19/16 20:59 Last Admin: 05/21/16 20:54 Dose: 100 mls/hr Ciprofloxacin (Cipro 200mg Premix Pb) 200 mg in 100 mls @ 100 mls/hr IV Q24HR [facility] Stop: 07/19/16 09:44 Last Admin: 05/22/16 08:56 Dose: 100 mls/hr Miscellaneous (Vte Chemical Prophylaxis Screen/ Admission) 1 ea MC PRN PRN PRN Reason: PROTOCOL Stop: 07/19/16 15:43 Morphine Sulfate (Morphine) 5 mg PO Q4H PRN PRN Reason: Severe Pain Stop: 07/18/16 23:44 Last Admin: 05/22/16 11:33 Dose: 5 mg Morphine Sulfate (Morphine) 2 mg IVP Q4HR PRN PRN Reason: Severe Pain Stop: 07/19/16 09:41 Mupirocin (Bactroban Oint) 1 appl NS BID [facility] Stop: 05/25/16 17:01 Last Admin: 05/22/16 17:07 Dose: Not Given Pantoprazole Sodium (Protonix) 40 mg IVP DAILY [facility] Stop: 07/19/16 08:59 Last Admin: 05/22/16 08:55 Dose: 40 mg Prochlorperazine Maleate (Compazine) 10 mg PO Q6HR PRN; Protocol PRN Reason: Nausea / Vomiting Stop: 07/18/16 23:17 Temazepam (Restoril) 15 mg PO HS PRN; Protocol PRN Reason: Insomnia Stop: 07/18/16 23:17 General: Alert, No acute distress HEENT: Atraumatic, Mucous membr. moist/pink Neck: Supple, +2 carotid pulse wo bruit Cardiovascular: Regular rate, Normal S1, Normal S2 Lungs: Clear to auscultation, Other Abdomen: Bowel sounds, Soft Extremities: no Edema Neurological: Sensation intact Skin: no Rash Assessment/Plan - Assessment Assessment: toño o ckd severe dehydration severe malnutrition mets colon ca GERD CM chronic A.Fib leukocytosis due to Cx UTI, infected ulcers anemia of ckd hypomagnesemia non gap met acid - Plan Plan: ivf encourage po intake occ cooperation w/ staff dc planning continue NaHCO3
[2016-05-22] MEDS ORDERED: Potassium Phosphate 20 MMOLE in Sodium Chloride 0.9% 250 ML IV ONE (19:02)
[2016-05-22] MEDS: cefTRIAXone 1 GM in Sodium Chloride 0.9% 50 ML IV SCH (23:31)
[2016-05-22] MEDS: Diclofenac 75 mg Tab PO PRN (23:33)
[2016-05-23 07:14] LABS: HEMATOCRIT 26.3 % (39.0-49.0); HEMOGLOBIN 8.8 gm/dL (12.6-17.4); MEAN CELL VOLUME 83.1 fl (80-99); MEAN CORPUSCULAR HEMOGLOBIN 27.9 pg (27.0-31.0); MEAN CORPUSCULAR HGB CONC 33.6 pg (28.0-36.0); PLATELET COUNT 192 Th/cmm (150-400); RED BLOOD COUNT 3.17 Mil/cmm (3.80-5.80); RED CELL DISTRIBUTION WIDTH 14.2 % (11.5-20.0)
[2016-05-23 07:33] LABS: ANION GAP 8.6 (7.0-16.0); BUN - UREA NITROGEN 38 mg/dL (7-25); BUN/CREATININE RATIO 34.5; CARBON DIOXIDE 18.6 mEq/L (21.0-31.0); CHLORIDE 115 mEq/L (98-107); CREATININE - SERUM 1.1 mg/dL (0.7-1.3); GLUCOSE 67 mg/dL (70-105); POTASSIUM SERUM 3.2 mEq/L (3.5-5.1); SODIUM SERUM 139 mEq/L (136-145)
[2016-05-23] MEDS: Sodium Chloride 0.9% 1,000 ML IV SCH (08:48)
[2016-05-23 08:51] LABS: BAND NEUTROPHILE 2 % (0-10); NEUTROPHILS 85 % (40-80); TOTAL CELLS COUNTED 100
[2016-05-23 08:52] LABS: EOSINOPHIL 0 % (0-5); OVALOCYTES 1+; PLATELET ESTIMATE ADEQUATE (NORMAL); PLATELET MORPHOLOGY NORMAL (NORMAL); POIKILOCYTOSIS 1+
[2016-05-23 08:53] LABS: ANISOCYTOSIS 1+
[2016-05-23] MEDS: Morphine 10 mg/5 ml 5mL UDC PO PRN (08:57)
[2016-05-23] MEDS: Ciprofloxacin 200mg Premix PB 200 MG/100 ML BAG IV SCH (09:45)
[2016-05-23] MEDS ORDERED: Potassium Chloride 20 mEq ER Tab PO ONE (10:30)
--- NOTE | 2016-05-23 13:06 | General Progress Note ---
Subjective - Review of Systems Service Date: 05/23/16 Subjective: awake, verbal, weak Objective - Results Result Diagrams: 05/23/16 06:20 05/23/16 06:20 Recent Labs: Laboratory Last Values WBC 13.0 Th/cmm (4.8-10.8) H D 05/23/16 06:20 RBC 3.17 Mil/cmm (3.80-5.80) L 05/23/16 06:20 Hgb 8.8 gm/dL (12.6-17.4) L 05/23/16 06:20 Hct 26.3 % (39.0-49.0) L 05/23/16 06:20 MCV 83.1 fl (80-99) 05/23/16 06:20 MCH 27.9 pg (27.0-31.0) 05/23/16 06:20 MCHC Differential 33.6 pg (28.0-36.0) 05/23/16 06:20 RDW 14.2 % (11.5-20.0) 05/23/16 06:20 Plt Count 192 Th/cmm (150-400) 05/23/16 06:20 MPV 6.0 fl 05/23/16 06:20 Band Neutrophils % 2 % (0-10) 05/23/16 06:20 Neutrophils (Manual) 85 % (40-80) H 05/23/16 06:20 Lymphocytes 7 % (20-50) L 05/23/16 06:20 Monocytes 6 % (2-10) 05/23/16 06:20 Eosinophils 0 % (0-5) 05/23/16 06:20 Platelet Estimate ADEQUATE (NORMAL) 05/23/16 06:20 Platelet Morphology NORMAL (NORMAL) 05/23/16 06:20 Poikilocytosis 1+ 05/23/16 06:20 Anisocytosis 1+ 05/23/16 06:20 Ovalocytes 1+ 05/23/16 06:20 RBC Morph Micro Appear ABNORMAL (NORMAL) 05/23/16 06:20 Eos Smear Source URINE 05/21/16 14:30 Eos Smear Total Cells NONE SEEN (NONE SEEN) 05/21/16 14:30 PT 12.8 SECONDS (9.5-11.5) H 05/19/16 20:54 INR 1.27 (0.5-1.4) 05/19/16 20:54 Sodium 139 mEq/L (136-145) 05/23/16 06:20 Potassium 3.2 mEq/L (3.5-5.1) L 05/23/16 06:20 Chloride 115 mEq/L (98-107) H 05/23/16 06:20 Carbon Dioxide 18.6 mEq/L (21.0-31.0) L 05/23/16 06:20 Anion Gap 8.6 (7.0-16.0) 05/23/16 06:20 BUN 38 mg/dL (7-25) H 05/23/16 06:20 Creatinine 1.1 mg/dL (0.7-1.3) 05/23/16 06:20 Est GFR ( Amer) TNP 05/23/16 06:20 Est GFR (Non-Af Amer) TNP 05/23/16 06:20 BUN/Creatinine Ratio 34.5 05/23/16 06:20 Glucose 67 mg/dL (70-105) L 05/23/16 06:20 Uric Acid 9.0 mg/dL (4.4-7.6) H 05/22/16 06:44 Calcium 9.0 mg/dL (8.6-10.3) 05/23/16 06:20 Phosphorus 1.7 mg/dL (2.5-5.0) L 05/22/16 06:44 Magnesium 1.9 mg/dL (1.9-2.7) 05/22/16 06:44 Total Bilirubin 0.7 mg/dL (0.3-1.0) 05/20/16 06:15 AST 13 U/L (13-39) 05/20/16 06:15 ALT 11 U/L (7-52) 05/20/16 06:15 Alkaline Phosphatase 201 U/L (34-104) H 05/20/16 06:15 Troponin I 0.04 ng/mL (0.01-0.05) 05/20/16 10:35 Total Protein 6.6 gm/dL (6.0-8.3) 05/20/16 06:15 Albumin 2.5 gm/dL (4.2-5.5) L 05/20/16 06:15 Globulin 4.1 gm/dL 05/20/16 06:15 Albumin/Globulin Ratio 0.6 (1.0-1.8) L 05/20/16 06:15 TSH 15.77 uIU/ml (0.34-5.60) H 05/19/16 20:54 Urine Source [place] 05/19/16 21:20 Urine Color CHUY 05/19/16 21:20 Urine Clarity CLOUDY (CLEAR) 05/19/16 21:20 Urine pH 5.5 05/19/16 21:20 Ur Specific [place] 1.015 (1.005-1.030) 05/19/16 21:20 Urine Protein 30 mg/dL (NEGATIVE) H 05/19/16 21:20 Urine Glucose (UA) NEGATIVE mg/dL (NEGATIVE) 05/19/16 21:20 Urine Ketones NEGATIVE mg/dL (NEGATIVE) 05/19/16 21:20 Urine Blood MODERATE (NEGATIVE) H 05/19/16 21:20 Urine Nitrate NEGATIVE (NEGATIVE) 05/19/16 21:20 Urine Bilirubin SMALL (NEGATIVE) H 05/19/16 21:20 Urine Ictotest NEGATIVE (NEGATIVE) 05/19/16 21:20 Urine Urobilinogen 1.0 E.U./dL (0.2 - 1.0) 05/19/16 21:20 Ur Leukocyte Esterase LARGE (NEGATIVE) H 05/19/16 21:20 Urine RBC 2-5 /hpf (0-5) H 05/19/16 21:20 Urine WBC >100 /hpf (0-5) H 05/19/16 21:20 Ur Epithelial Cells OCCASIONAL /lpf (FEW) 05/19/16 21:20 Urine Bacteria MANY /hpf (NONE SEEN) 05/19/16 21:20 Ur Random Sodium 47 mmol/L 05/21/16 14:30 Urine Creatinine 38.0 mg/dl (39.0-259.0) L 05/21/16 14:30 Digoxin 2.2 ng/ml (0.8-2.0) H 05/20/16 06:15 - Physical Exam Vitals and I&O: Vital Signs Temp 99.6 F 05/23/16 08:49 Pulse 80 05/23/16 08:49 Resp 18 05/23/16 08:49 BP 110/46 05/23/16 08:49 Pulse Ox 98 05/23/16 08:49 Intake & Output 05/22/16 05/23/16 05/23/16 18:59 06:59 18:59 Intake Total 1100 1150 1000 Output Total 750 Balance 2621 326 9422 Intake: Intake, IV Amount 1100 1050 1000 Ciprofloxacin 200mg 100 Premix PB 200 mg In 100 ml @ 100 mls/hr IV Q24HR [facility] Rx#:[id number] Sodium Chloride 0.9% 1, 1000 1000 1000 000 ml @ 125 mls/hr IV . Q8H [facility] Rx#:[id number] cefTRIAXone 1 gm In 50 Sodium Chloride 0.9% 50 ml @ 100 mls/hr IV Q24HR [facility] Rx#:[id number] Oral 100 Output: Urine 750 Other: # Bowel Movements 0 Active Medications: Current Medications Acetaminophen (Tylenol) 650 mg PO Q6HR PRN PRN Reason: Pain (Mild) Stop: 07/18/16 23:17 Albuterol/Ipratropium (Duoneb Neb) 3 ml HHN Q4HR PRN PRN Reason: Shortness of Breath or Wheeze Stop: 07/18/16 23:17 Bisacodyl (Dulcolax 10 Mg Supp) 10 mg RC DAILY PRN PRN Reason: Constipation Stop: 07/18/16 23:17 Diclofenac Sodium (Voltaren) 75 mg PO DAILY PRN PRN Reason: Moderate Pain Stop: 07/18/16 23:17 Last Admin: 05/22/16 23:33 Dose: 75 mg Docusate Sodium (Colace) 100 mg PO BID PRN PRN Reason: Constipation Stop: 07/18/16 23:17 Last Admin: 05/20/16 09:10 Dose: 100 mg Sodium Chloride (Nacl 0.9%) 1,000 mls @ 125 mls/hr IV .Q8H [facility] Stop: 07/18/16 23:10 Last Admin: 05/23/16 08:48 Dose: 125 mls/hr Ceftriaxone Sodium 1 gm/ (Sodium Chloride) 50 mls @ 100 mls/hr IV Q24HR [facility] Stop: 07/19/16 20:59 Last Infusion: 05/23/16 00:31 Dose: Infused Ciprofloxacin (Cipro 200mg Premix Pb) 200 mg in 100 mls @ 100 mls/hr IV Q24HR [facility] Stop: 07/19/16 09:44 Last Admin: 05/23/16 09:45 Dose: 100 mls/hr Miscellaneous (Vte Chemical Prophylaxis Screen/ Admission) 1 ea MC PRN PRN PRN Reason: PROTOCOL Stop: 07/19/16 15:43 Morphine Sulfate (Morphine) 5 mg PO Q4H PRN PRN Reason: Severe Pain Stop: 07/18/16 23:44 Last Admin: 05/23/16 08:57 Dose: 5 mg Morphine Sulfate (Morphine) 2 mg IVP Q4HR PRN PRN Reason: Severe Pain Stop: 07/19/16 09:41 Mupirocin (Bactroban Oint) 1 appl NS BID [facility] Stop: 05/25/16 17:01 Last Admin: 05/22/16 17:07 Dose: Not Given Pantoprazole Sodium (Protonix) 40 mg IVP DAILY [facility] Stop: 07/19/16 08:59 Last Admin: 05/23/16 09:13 Dose: 40 mg Prochlorperazine Maleate (Compazine) 10 mg PO Q6HR PRN; Protocol PRN Reason: Nausea / Vomiting Stop: 07/18/16 23:17 Sodium Bicarbonate (Sodium Bicarbonate) 650 mg PO BID [facility] PRN Reason: Protocol Stop: 07/21/16 19:14 Last Admin: 05/23/16 08:47 Dose: 650 mg Temazepam (Restoril) 15 mg PO HS PRN; Protocol PRN Reason: Insomnia Stop: 07/18/16 23:17 General: Alert, No acute distress HEENT: Atraumatic, Mucous membr. moist/pink Neck: Supple, +2 carotid pulse wo bruit Cardiovascular: Regular rate, Normal S1, Normal S2 Lungs: Clear to auscultation Abdomen: Bowel sounds, Soft Extremities: no Edema Neurological: Sensation intact Skin: no Rash Assessment/Plan - Assessment Assessment: tñoo on ckd severe dehydration severe malnutrition mets colon ca GERD CM chronic A.Fib leukocytosis due to Cx UTI, infected ulcers anemia of ckd hypomagnesemia non gap met acid - Plan Plan: ivf encourage po intake occ cooperation w/ staff dc planning continue NaHCO3 replace [id number]
--- NOTE | 2016-07-29 17:44 | Discharge Summary ---
ADMITTING DIAGNOSES: 1. Leukocytosis, likely secondary to wound infection versus pneumonia. 2. Renal insufficiency, azotemia. 3. Generalized pain/chronic pain syndrome. 4. Multiple decubitus ulcers. 5. Malnutrition, poor p.o. intake. 6. Anemia. 7. Elevated troponins. SECONDARY DIAGNOSES: Include history of colon cancer with metastatic disease, history of atrial fibrillation, history of cardiomyopathy, history of congestive heart failure, history of acid reflux disease, hypothyroidism. DISCHARGE DIAGNOSES: 1. Leukocytosis secondary to urinary tract infection, complicated/infected decubitus ulcer-improved. 2. Renal insufficiency, azotemia-improved 3. Generalized pain/chronic pain syndrome. 4. Multiple decubitus ulcers. 5. Malnutrition, poor p.o. intake. 6. Anemia. 7. Non-gap metabolic acidosis. CONSULTANTS: Dr. Mcfarland, Nephrology; Dr. Coello, General Surgery. MAJOR PROCEDURES: There were no major procedures done on this admission. BRIEF HOSPITAL COURSE: An 80-year-old male with the above-mentioned conditions was brought into the ER from home given generalized bodyaches. The patient had a DNR code status and was on high doses of analgesics. Apparently, he also had hospice, but was brought him because of worsening pain. Pertinent findings on admission included white count of 16.6, a BUN and creatinine of 73/1.9, slightly elevated troponins of 0.06. A TSH of 15.77 and a UA consistent with a UTI. The patient was pancultured and pertinent finding included a urine with E. coli, positive blood cultures with P. mirabilis, and wound cultures positive for P. mirabilis and MRSA. The patient was placed on IV fluids and broad-spectrum IV antibiotics and was kept on his medications including pain medications. He was seen by Surgery for decubitus ulcers and underwent basic wound clean at bedside. By 05/22/2016, his white count had improved to a level of 10.3, BUN also was noted to be improved at 48, and a creatinine was down to 1.2. CONDITION ON DISCHARGE: Stable. DISPOSITION: The patient was discharged home under hospice/[facility]. The patient's care will be resumed by the hospice doctor within 24 to 48 hours. [facility]# [id number] [facility]
== END 2016-05-23 13:40 | disposition home or self-care (01) | DRG 682 ==
LOC: ER 20:34 → TELE 23:00
PROVIDERS: ADMIT Internal Medicine; ATTEND Internal Medicine
DX: N17.9 Acute kidney failure, unspecified (principal); E43 Unspecified severe protein-calorie malnutrition; L89.219 Pressure ulcer of right hip, unspecified stage; I42.9 Cardiomyopathy, unspecified; I13.0 Hypertensive heart and chronic kidney disease with heart failure and stage 1 through stage 4 chronic kidney disease, or unspecified chronic kidney disease; L89.319 Pressure ulcer of right buttock, unspecified stage; I50.9 Heart failure, unspecified; R64 Cachexia; I48.2 Chronic atrial fibrillation; N39.0 Urinary tract infection, site not specified; E83.42 Hypomagnesemia; L89.629 Pressure ulcer of left heel, unspecified stage; D64.9 Anemia, unspecified; I25.10 Atherosclerotic heart disease of native coronary artery without angina pectoris; Z66 Do not resuscitate; K21.9 Gastro-esophageal reflux disease without esophagitis; E86.0 Dehydration; N18.3 Chronic kidney disease, stage 3 (moderate); D63.1 Anemia in chronic kidney disease; F32.9 Major depressive disorder, single episode, unspecified; G89.4 Chronic pain syndrome; Z68.21 Body mass index [BMI] 21.0-21.9, adult; Z85.038 Personal history of other malignant neoplasm of large intestine; Z82.49 Family history of ischemic heart disease and other diseases of the circulatory system
CPT/HCPCS: 36415-UA; 71010-TC; 80048-TC; 80053-TC; 80162-TC; 81001-TC; 81015-TC; 82570-TC; 83735-TC; 84100-TC; 84300-TC; 84443-TC; 84484-TC; 84550-TC; 85007-TC; 85027-TC; 85610-TC; 87070-90; 87086-90; 90799; 93005; 94760; 96374; 96375; C9113; J0696; J0744; J2270; J2930; J3475; J7030; J7040; Z7610